=== PATIENT | female | born 1965 | race African-American/Black ===

== ENCOUNTER → 2017-03-29 | Outpatient (CLI) | payer MEDICARE, OTHER | LOC: WI 12:47 | PROVIDERS: ATTEND Internal Medicine Geriatric Medicine | DX: Z12.31 Encounter for screening mammogram for malignant neoplasm of breast (principal) | CPT/HCPCS: 77067; G0202 ==

== ENCOUNTER → 2017-09-24 | Outpatient (CLI) | payer MEDICARE, OTHER ==
--- NOTE | 2017-09-24 15:31 | XCELERA REPORT ---
[address] [address] Lower Extremity Venous Evaluation Name: JYOTI CHRISTIANSNO Age: 51 yrs Gender: Female : 1965 Patient Status: Outpatient Patient Location: Study Date: 09/24/2017 02:30 PM Procedure: Color flow and duplex imaging bilaterally of the veins of the lower extremities as well as the Common Femoral veins. Reason For Study: EDEMA Ordering Physician: FLEX SINCLAIR Performed By: Bernardo Ramos Right Sided Venous Evaluation Normal vessel filling wall to wall, compression and augmentation as well as Colour flow down to the infrageniculate veins. Left Sided Venous Evaluation Normal vessel filling wall to wall, compression and augmentation as well as Colour flow down to the infrageniculate veins. Interpretation Summary No duplex evidence of DVT or obstruction in the bilateral lower extremities. : FLEX SINCLAIR > Rafa Pena
== END ==
LOC: SP 14:15
PROVIDERS: ATTEND Internal Medicine Geriatric Medicine
DX: R60.0 Localized edema (principal)
CPT/HCPCS: 93970